=== PATIENT | male | born 1965 | race African-American/Black ===

== ENCOUNTER → 2016-11-05 | Outpatient (CLI) | payer OTHER ==
--- NOTE | ~2016-11-05 | CT2 ---
[facility] A Service of [facility] & [facility] RADIOLOGY TEXT RESULTS PATIENT: ANA SOTO LOCATION: CCAT : 63 UNIT #: [id number] AGE: [address]: Jorden Eastman MD SEX: M ORDER DR: [id number] [facility] [address] [place], [place] [address] [id number] O MR#: [id number] Acc #: [id number] NAME: ANA SOTO : 1965 SEX: M STUDY DATE/TIME: 11/05/2016 15:15 UNIT: [facility] ROOM: STUDY DESCRIPTION: CT Abd and Pelv W Cont Attending Physician: Jorden Eastman M.D., Ph.D. Ordering Physician: Jorden Eastman M.D., Ph.D. Primary Care Physician: Primary Care Physician No MEDICAL IMAGING REPORT This report is preliminary unless electronic signature is present EXAM Abdomen and pelvis CT with contrast COMPARISON 08/18/2015. HISTORY Bladder cancer diagnosed 8 months ago. Back pain and hematuria for the past 5-6 months. TECHNIQUE Axial images were obtained with intravenous contrast. 100 mL of Isovue was used. Comparison scan from 08/18/2015. This CT examination was performed with one or more of the following radiation dose reduction techniques: automatic exposure control, adjustment of mA and/or kV according to patient size, and iterative reconstruction. FINDINGS No upper abdominal solid organ abnormalities are seen. No adrenal masses are noted. There is a somewhat ill-defined retroperitoneal mass to the left of the aorta just above the level of the crossing left renal vein that measures about 6 x 21 mm. It was present on the previous scan in 2016 and shows no significant change. No new retroperitoneal masses are seen. No enlarged pelvic lymph nodes are noted. There is no evidence of bowel distension. The appendix is normal. In the pelvis, the bladder wall is noted to be markedly thickened and irregular. There is a more focal mass-like projection off the right side of the bladder. It measures 1.9 x 2.8 cm in transverse diameter and may represent the patient's primary bladder malignancy. The prostate gland is mildly enlarged. Diffuse thickening of the bladder wall was also seen on the previous CT in 2016 although it has worsened since that time. IMPRESSION [facility] A Service of [facility] & [facility] RADIOLOGY TEXT RESULTS PATIENT: ANA SOTO LOCATION: [facility] : 63 UNIT #: [id number] AGE: [address]: Jorden Eastman MD SEX: M ORDER DR: 1. No clear-cut evidence of metastatic disease in the abdomen or pelvis. An ill-defined left sided retroperitoneal mass seen on this study was present in 2016 and has not changed. It could potentially represent a stable metastatic retroperitoneal node. 2. Bladder wall thickening diffusely showing an increase in prominence since 2016. 3. More focal bladder wall mass on the right measuring 1.9 x 2.8 cm. Dictated by... Gilles Valle M.D. THIS IS AN ELECTRONICALLY VERIFIED REPORT Gilles Valle M.D. at 11/06/2016 6:27 PM LAUREN/osman TD: 11/06/2016 12:21 JOB #: [id number] MEDICAL IMAGING REPORT Page 1 of 1 COPY
--- NOTE | ~2016-11-05 | CT55 ---
[facility] A Service of [facility] & [facility] RADIOLOGY TEXT RESULTS PATIENT: ANA SOTO LOCATION: [facility]AT : 63 UNIT #: [id number] AGE: [address]: Jorden Eastman MD SEX: M ORDER DR: [id number] [facility] [address] [place], [place] [address] [id number] O MR#: [id number] Acc #: [id number] NAME: ANA SOTO : 1965 SEX: M STUDY DATE/TIME: 11/05/2016 15:15 UNIT: [facility] ROOM: STUDY DESCRIPTION: CT Chest W Con Attending Physician: Jorden Eastman M.D., Ph.D. Ordering Physician: Jorden Eastman M.D., Ph.D. Primary Care Physician: Primary Care Physician No MEDICAL IMAGING REPORT This report is preliminary unless electronic signature is present EXAM Chest CT with contrast HISTORY Bladder cancer diagnosed 8 months ago. Low back pain for the past 5-6 months with hematuria. TECHNIQUE Axial images were obtained through the chest with contrast. 100 mL of Isovue was used. This CT exam was performed with one or more of the following radiation dose reduction techniques: automatic exposure control, adjustment of mA and/or kV according to patient size, and iterative reconstruction. FINDINGS Chest images at mediastinal window show no enlarged mediastinal or hilar lymph nodes. There is no evidence of pleural or pericardial fluid. Lung window imaging shows multiple small nodules in the lower lung chatman. In the right lower lobe posteromedially there is a 3.0-4.0 mm nodule and in the azygoesophageal recess on the right there is a 5.0 mm nodule. In the right lower lobe laterally just above the diaphragm, there is also a 5.0 mm nodule noted. There are 2 small left lower lobe nodules posteromedially, each measuring about 3.0-4.0 mm in diameter in addition to the 8.0 mm nodule. Given the patient's history of bladder cancer, these nodules are suspicious for metastatic disease. IMPRESSION Multiple noncalcified nodules are seen, new since the previous abdominal CT scan in 08/18/2015. The largest is at the left lung base laterally measuring 8.0 mm. The nodules are strongly suspicious for metastatic disease. [facility] A Service of [facility] RADIOLOGY TEXT RESULTS PATIENT: ANA SOTO [facility] : 63 UNIT #: [id number] AGE: [address]: Jorden Eastman MD SEX: M ORDER DR: Dictated by... Gilles Valle M.D. THIS IS AN ELECTRONICALLY VERIFIED REPORT Gilles Valle M.D. at 11/06/2016 6:27 PM LAUREN/sherine TD: 11/06/2016 12:06 JOB #: [id number] MEDICAL IMAGING REPORT Page 1 of 1 COPY
[2016-11-05 16:11] LABS: POC - CREATININE 1.27 mg/dL (0.64-1.27); POC - GFR >60.0 mL/min (>60)
== END | disposition home or self-care (01) ==
LOC: CCAT 14:15 → EDBD 14:26
PROVIDERS: Internal Medicine Hematology & Oncology
DX: C67.9 Malignant neoplasm of bladder, unspecified (principal); R91.8 Other nonspecific abnormal finding of lung field; N32.89 Other specified disorders of bladder
CPT/HCPCS: 71260; 74177; 82565; Q9967